=== PATIENT | female | born 1995 | race Caucasian/White ===

== ENCOUNTER 2021-03-16 23:48 | Emergency (ER) | payer MEDICAID ==
[~2021-03-16] VITALS: Ht 160 cm; Wt 45.4 kg
[2021-03-17 00:21] LABS: URINE BILIRUBIN NEGATIVE (Negative); URINE BLOOD NEGATIVE (Negative); URINE CLARITY CLEAR; URINE COLOR YELLOW; URINE GLUCOSE-RANDOM NEGATIVE (Negative); URINE KETONES NEGATIVE (Negative); URINE LEUKOCYTES-REFLEX NEGATIVE (Negative); URINE NITRITE-REFLEX NEGATIVE (Negative); URINE PROTEIN NEGATIVE (Negative); URINE UROBILINOGEN 0.2 E.U./dl (0.2-1.0)
[2021-03-17 01:32] VITALS: BP 122/79
== END 2021-03-17 01:32 | disposition home or self-care (01) ==
LOC: M.ERS 23:48
PROVIDERS: Emergency Medicine
DX: N89.8 Other specified noninflammatory disorders of vagina (principal)